=== PATIENT | male | born 1980 ===

== ENCOUNTER 2025-02-04 06:23 | Emergency (ER) | payer MEDICAID, OTHER ==
[~2025-02-04] VITALS: Ht 185.4 cm; Wt 99.8 kg
--- NOTE | 2025-02-04 07:49 | DVH ---
INDICATION: Back pain x 2 months TECHNIQUE: 4 views of the lumbar spine were obtained. COMPARISON: None FINDINGS: There are no acute fractures or subluxations. Mild multilevel degenerative anterior osteophyte formation. Suggestion of possible mild neural foraminal stenosis at L4-L5 and L5-S1. IMPRESSION: No acute fracture or subluxation.
[2025-02-04 08:12] LABS: Urine Bacteria None Seen /hpf (None Seen)
[2025-02-04 08:17] LABS: Urine Blood Negative /uL (Negative); Urine Clarity Clear (Clear); Urine Color Light-Yellow (Yellow); Urine Mucus FEW (None Seen); Urine Protein, UAD Negative (Negative); Urine Specific Gravity 1.025 (1.001-1.035); Urine Squamous Epithelial Cell FEW /hpf (<5); Urine Urobilinogen Normal (Negative); Urine WBC < 1 /HPF (0-3)
--- NOTE | 2025-02-04 08:34 | ED.PDOC ---
History of Present Illness HPI Comments 44M presents to the ER w/ no prior MHx associated to the c/c of back pain. Pt reports on having non radiating pain to the LLB for the past 1 month. Pain aggravated with ambulation and alleviated at rest. Pt notes that the pain also worsens when he stand up from sitting down. Therapies tried: none. Denies history of chronic steroid use or history of osteoporosis Denies any history of cancer Denies fevers chills night sweats nausea vomiting unintentional weight loss Denies IV drug use history of HIV/TB Denies abdominal "tearing" pain Denies syncope Denies urinary incontinence or urinary changes Denies numbness tingling of the groin or inner thigh Denies previous back procedure or surgery Chief Complaint: Back Pain Time Seen by MD: 08:30 Reviewed Notes: Nurses Notes, Medications, Allergies Allergies: Coded Allergies: NO KNOWN ALLERGIES (Unverified , 02/04/25) Home Meds Active Scripts Naproxen (Naproxen) 500 Mg Tab, 500 MG PO [id number] PRN for 10 Days, #20 TAB 0 Refills Prov:ENMA SENIOR NP 02/04/25 Methocarbamol (Methocarbamol) 500 Mg Tab, 500 MG PO Q8HP PRN for 10 Days, #30 TAB 0 Refills Prov:ENMA SENIOR NP 02/04/25 Information Source: Patient Mode of Arrival: Ambulatory Severity: Moderate Timing: Weeks Duration: Since onset Prehospital treatment: None Past Medical History PAST MEDICAL HISTORY: Denies Surgical History: Denies all surgeries Family History Family History: Reviewed,noncontributory to illness, Unknown Social History Smoker: Non-Smoker Alcohol: Denies ETOH Use Drugs: Denies Drug Use Lives In: Home Constitutional: denies: chills, diaphoresis, fatigue, fever, malaise, sweats, weakness, others EENTM: denies: blurred vision, double vision, ear bleeding, ear discharge, ear drainage, ear pain, ear ringing, eye pain, eye redness, hearing loss, mouth pain, mouth swelling, nasal discharge, nose bleeding, nose congestion, nose pain, photophobia, tearing, throat pain, throat swelling, voice changes, others Respiratory: denies: cough, hemoptysis, orthopnea, SOB at rest, shortness of breath, SOB with excertion, stridor, wheezing, others Cardiovascular: denies: chest pain, dizzy spells, diaphoresis, Dyspnea on exertion, edema, irregular heart beat, left arm pain, lightheadedness, palpitations, PND, syncope, others Gastrointestinal: denies: abdomen distended, abdominal pain, blood streaked bowels, constipated, diarrhea, dysphagia, difficulty swallowing, hematemesis, melena, nausea, poor appetite, poor fluid intake, rectal bleeding, rectal pain, vomiting, others Genitourinary: denies: burning, dysuria, flank pain, frequency, hematuria, incontinence, penile discharge, penile sore, pain, testicle pain, testicle swelling, urgency, others Neurological: denies: dizziness, fainting, headache, left sided numbness, left sided weakness, numbness, paresthesia, pre-existing deficit, right sided numbness, right sided weakness, seizure, speech problems, tingling, tremors, weakness, others Musculoskeletal: denies: back pain, gout, joint pain, joint swelling, muscle pain, muscle stiffness, neck pain, others Integumetry: denies: bruises, change in color, change in hair/nails, dryness, laceration, lesions, lumps, rash, wounds, others Allergic/Immunocompromised: denies: Difficulty Healing, Frequent Infections, Hives, Itching, others Hematologic/Lymphatic: denies: anemia, blood clots, easy bleeding, easy bruising, swollen glands, others Endocrine: denies: excessive hunger, excessive sweating, excessive thirst, excessive urination, flushing, intolerance to cold, intolerance to heat, unexplained weight gain, unexplained weight loss, others Psychiatric: denies: anxiety, bipolar disorder, depression, hopeless, panic disorder, schizophrenia, sleepless, suicidal, others All Other Systems: Reviewed and Negative Physical Exam General Appearance: No Apparent Distress, Normal HEENT: Normal ENT Inspection, Pharynx Normal, TMs Normal Neck: Full Range of Motion, Non-Tender, Normal, Normal Inspection Respiratory: Chest Non-Tender, Lungs Clear, No Accessory Muscle Use, No Respiratory Distress, Normal Breath Sounds Cardiovascular: No Murmur, No Gallop, Regular Rate/Rhythm Breast Exam: Deferred Gastrointestinal: No Organomegaly, Non Tender, No Pulsatile Mass, Normal Bowel Sounds, Soft Genitalia: Deferred Pelvic: Deferred Rectal: Deferred Extremities: No calf tenderness, Normal capillary refill, Normal inspection, Normal range of motion, Non-tender, No pedal edema Musculoskeletal : Extremity Location: Back (No gross abnormality on inspection. No midline tenderness. No bony step-offs on palpation. Localized TTP to the left paraspinal region. Full forward flexion-extension lateral movements and neurovascular sensation intact) Apperance: Normal Neurologic: Alert, collection coordinator II-XII nml as Tested, No Motor Deficits, Normal Affect, Normal Mood, No Sensory Deficits Cerebellar Function: Normal Reflexes: Normal Skin: Dry, Normal Color, Warm Lymphatic: No Adenopathy Was a procedure done? Was a procedure done?: No Differential Dx Considerations may include: see course note X-Ray, Labs, Meds, VS Vital Signs Date Time Temp Pulse Resp B/P (MAP) Pulse Ox O2 Delivery O2 Flow Rate FiO2 02/04/25 09:27 98 16 97 Room Air 02/04/25 09:27 98.7 89 16 144/84 (104) 97 98.7 02/04/25 06:40 97.1 99 18 156/102 (120) 96 97.1 Lab Test 02/04/25 08:36 02/04/25 08:02 Range/Units White Blood Count 7.9 4.4-10.8 10^3/uL Red Blood Count 5.34 4.5-5.90 10^6/uL Hemoglobin 16.5 13.5-17.5 g/dL Hematocrit 47.2 41.0-53.0 % Mean Corpuscular Volume 88.4 80.0-100.0 fL Mean Corpuscular Hemoglobin 30.9 28.0-32.0 pg Mean Corpuscular Hemoglobin Concent 34.9 32.0-36.0 g/dL Red Cell Distribution Width 13.1 11.8-14.3 % Platelet Count 266 140-450 10^3/uL Mean Platelet Volume 7.5 6.9-10.8 fL Neutrophils (%) (Auto) 60.4 37.0-80.0 % Lymphocytes (%) (Auto) 27.9 10.0-50.0 % Monocytes (%) (Auto) 8.7 0.0-12.0 % Eosinophils (%) (Auto) 2.3 0.0-7.0 % Basophils (%) (Auto) 0.7 0.0-2.0 % Neutrophils # (Auto) 4.7 1.6-8.6 10 ^3/uL Lymphocytes # (Auto) 2.2 0.4-5.4 10 ^3/uL Monocytes # (Auto) 0.7 0-1.3 10 ^3/uL Eosinophils # (Auto) 0.2 0-0.8 10 ^3/uL Basophils # (Auto) 0.1 0-0.2 10 ^3/uL Nucleated Red Blood Cells 0.1 % Sodium Level 142 136-145 mmol/L Potassium Level 4.2 3.5-5.1 mmol/L Chloride Level 106 98-107 mmol/L Carbon Dioxide Level 29 20-31 mmol/L Anion Gap 7 5-15 Blood Urea Nitrogen 14 9-23 mg/dL Creatinine 0.96 0.700-1.30 mg/dL Glomerular Filtration Rate Calc 99 >90 mL/min BUN/Creatinine Ratio 14.6 10.0-20.0 Serum Glucose 113 H 74-106 mg/dL Calcium Level 10.3 8.7-10.4 mg/dL Urine Color Light-yellow Yellow Urine Clarity Clear Clear Urine pH 6.0 5.0-9.0 Urine Specific [place] 1.025 1.001-1.035 Urine Protein Negative Negative Urine Ketones Negative Negative Urine Blood Negative Negative /uL Urine Nitrite Negative Negative Urine Bilirubin Negative Negative Urine Urobilinogen Normal Negative mg/dL Urine Leukocyte Esterase Negative Negative /uL Urine RBC 1 0 - 3 /hpf Urine Microscopic WBC < 1 0-3 /HPF Urine Squamous Epithelial Cells Few <5 /hpf Urine Bacteria None seen None Seen /hpf Urine Mucus Few None Seen Urine Glucose Normal Normal mg/dL Current Medications Medications (Trade) Dose Ordered Sig/Chance Route Start Time Stop Time Status Last Admin Ketorolac Tromethamine (Toradol Injection) 30 mg ONCE ONCE IM 02/04/25 09:00 02/04/25 09:09 DC 02/04/25 09:13 X-Ray, Labs, Meds, VS Comment 44M presents to the ER w/ no prior MHx associated to the c/c of back pain. Patient arrives alert and oriented, ABC's intact, afebrile, vital signs stable, saturating well in room air Signs and symptoms suggest mechanical back pain. The episode appears to be exacerbated by movements. The patient's motor strength and DTR's are currently intact. There are no signs or symptoms of cauda equina or cord compression at this time. No evidence of fracture on Xray. Differential diagnoses include muscle strain versus arthralgia versus radicular/disk disease. The differential for an acute vascular, neurologic, malignant, or infectious etiologies is much less likely given his presentation. Patient able to ambulate. The patient will follow up with his PMD to see if their symptoms adam. The patient was counseled in regards to the diagnosis and management of their condition and verbalized un derstanding of this. The patient understands to go to the ED or seek immediate medical attention if the symptoms worsen or return. Peripheral IV insertion+ labs were ordered. CBC was ordered to exclude anemia, blood loss, or infection. BMP was ordered to exclude electrolyte abnormalities, renal failure, dehydration, hyperglycemia Urinalysis was ordered to rule out UTI or hematuria. Patient was treated with Toradol x1 with no adverse reactions Additional MDM Review of External, Non-ED records: External records reviewed. Discussion with independent historian (EMS, family) history obtained from the patient/parents (if applicable) at bedside Chronic conditions affecting care: None Social determinants of health affecting care: None Consideration of admission (observation or admission): I considered escalation of care to admission for this patient, however given the reassuring workup, the patient is safe for outpatient management. Time of 1ST Reevaluation: 09:00 Reevaluation 1ST: Unchanged Time of 2ND Reevaluation: 09:22 Reevaluation 2ND: Improved Patient Education/Counseling: Diagnosis, Treatment, Prognosis Family Education/Counseling: No Family Present SEPSIS Sepsis Screen Date sepsis recognized/suspect: Feb 04, 2025 Time Sepsis recognized/suspect: 635 Recent Procedure: No On Antibiotic Therapy: No Respiratory Rate >20: No Heart Rate >90: Yes Temp<36 C (96.8 F) or >38.3 C: No SBP <90 or MAP <65 mmHG: No New Acute Mental Status Change: No Is the patient on CPAP, BIPAP,: No Physician Orders Lumbar Spine 3 View (02/04/25 06:58) Vital Signs Date Time Temp Pulse Resp B/P (MAP) Pulse Ox O2 Delivery O2 Flow Rate FiO2 02/04/25 09:27 98 16 97 Room Air 02/04/25 09:27 98.7 89 16 144/84 (104) 97 98.7 02/04/25 06:40 97.1 99 18 156/102 (120) 96 97.1 Laboratory Tests Test 02/04/25 08:36 White Blood Count 7.9 10^3/uL (4.4-10.8) Medications Medications Dose Ordered Sig/Chance Route Start Time Stop Time Status Last Admin Dose Admin Ketorolac Tromethamine 30 mg ONCE ONCE IM 02/04/25 09:00 02/04/25 09:09 DC 02/04/25 09:13 Departure 1 Departure Time of Disposition: :22 Impression: Primary Impression: Back pain Qualified Codes: M54.50 - Low back pain, unspecified Additional Impression: Pain of paraspinal muscle Disposition: HOME / SELF CARE / HOMELESS Condition: Stable Additional Instructions: Discharge Note: Continue on your medications. Do not drive when taking narcotics. Drink plenty of fluids. Follow up with your primary Dr.. Take your prescriptions as ordered. If your condition becomes worse call and follow up with your primary Dr. for instructions or return to the ER if needed. Thank you for visiting [facility]. e-Prescriptions Naproxen (Naproxen) 500 Mg Tab 500 MG PO [id number] PRN for 10 Days, #20 TAB 0 Refills Prov: ENMA SENIOR NP 02/04/25 Methocarbamol (Methocarbamol) 500 Mg Tab 500 MG PO Q8HP PRN for 10 Days, #30 TAB 0 Refills Prov: ENMA SENIOR TICKET CHOPPER ASSEMBLER 02/04/25 Critical Care Note Critical Care Time?: No Stability Stability form required: No Heart Score Heart Score: Heart Score Response (Comments) Value History N/A 0 EKG N/A 0 Age N/A 0 Risk Factors N/A 0 Troponin N/A 0 Total 0 I personally scribed for ENMA SENIOR NP ([email or web address]) on 02/04/25 at 08:34. Electronically submitted by Vikas Pa ([email or web address]). ENMA SENIOR NP Feb 04, 2025 08:34
[2025-02-04 09:13] LABS: Chloride 106 mmol/L (98-107); Potassium 4.2 mmol/L (3.5-5.1); Sodium 142 mmol/L (136-145)
[2025-02-04] MEDS: KETOROLAC TROMETH 30 MG/ML 1ML VIAL IM ONE (09:13)
[2025-02-04 09:14] LABS: Basophils # (auto) 0.1 10 ^3/uL (0-0.2); Basophils % (auto) 0.7 % (0.0-2.0); Calcium 10.3 mg/dL (8.7-10.4); Eosinophils # (auto) 0.2 10 ^3/uL (0-0.8); Eosinophils % (auto) 2.3 % (0.0-7.0); Hematocrit 47.2 % (41.0-53.0); Hemoglobin 16.5 g/dL (13.5-17.5); Lymphocytes # (auto) 2.2 10 ^3/uL (0.4-5.4); Lymphocytes % (auto) 27.9 % (10.0-50.0); Mean Corpuscular Hemoglobin 30.9 pg (28.0-32.0); Mean Corpuscular Hgb Conc. 34.9 g/dL (32.0-36.0); Mean Corpuscular Volume 88.4 fL (80.0-100.0); Monocytes # (auto) 0.7 10 ^3/uL (0-1.3); Monocytes % (auto) 8.7 % (0.0-12.0); Neutrophils # (auto) 4.7 10 ^3/uL (1.6-8.6); Neutrophils % (auto) 60.4 % (37.0-80.0); Nucleated Red Blood Cells % 0.1 %; Platelet Count (auto) 266 10^3/uL (140-450); Red Blood Cells 5.34 10^6/uL (4.5-5.90); Red Cell Distribution Width 13.1 % (11.8-14.3); White Blood Cell 7.9 10^3/uL (4.4-10.8)
[2025-02-04 09:15] LABS: Anion Gap 7 (5-15); Carbon Dioxide 29 mmol/L (20-31)
[2025-02-04 09:19] LABS: BUN/Creatinine Ratio 14.6 (10.0-20.0); Blood Urea Nitrogen 14 mg/dL (9-23); Glucose 113 mg/dL (74-106)
[2025-02-04] MEDS ORDERED: NAPR-746 PO (09:23)
[2025-02-04] MEDS ORDERED: METH-1181 PO (09:23)
[2025-02-04 09:27] VITALS: BP 144/84; PULSE 98; RESP 16; TEMP 98.7; O2SAT 97
== END 2025-02-04 09:30 | disposition home or self-care (01) ==
LOC: ER 06:23
DX: M54.50 Low back pain, unspecified (principal); M62.89 Other specified disorders of muscle
CPT/HCPCS: 36415; 72100; 80048; 81001; 85025; 96372; 99284; J1885